=== PATIENT | female | born 1925 | race Caucasian/White ===

== ENCOUNTER 2016-04-01 15:45 | Inpatient (IN) | payer MEDICARE, BC ==
[~2016-04-01] VITALS: Ht 172.7 cm; Wt 67.3 kg
[2016-04-01] MEDS ORDERED: DILAUDID 1 MG/ML AMP ONE ×2 (18:59→21:15)
[2016-04-01] MEDS ORDERED: DUONEB INH ONE (19:40)
[2016-04-01] MEDS: DUONEB INH SCH (20:25)
[2016-04-01] MEDS ORDERED: NEB-ALBUTEROL 2.5 MG/3 ML INH PRN (20:25)
[2016-04-01] MEDS ORDERED: ACETAMINOPHEN 325 MG TAB PO PRN (20:35)
[2016-04-01] MEDS ORDERED: SALINE FLUSH 10 ML FLUSH PRN (20:35)
[2016-04-01] MEDS: NEB-BUDESONIDE 0.5 MG INH SCH (21:00)
[2016-04-01] MEDS ORDERED: PHARMACY TO DOSE XX ONE (21:00)
[2016-04-01] MEDS: NEB-BROVANA 15 MCG/2 ML INH SCH (21:00)
[2016-04-01] MEDS ORDERED: ENOXAPARIN 60 MG/0.6 ML SYR SUBQ ONE (21:05)
[2016-04-01] MEDS ORDERED: OPTIRAY 350 100 ML VIAL HMH IV ONE (21:07)
[2016-04-01 23:05] VITALS: BP_SYST 150; RESP 20; TEMP 97.9; Ht 172.7 cm; Wt 67.3 kg
[2016-04-01] MEDS: DOCUSATE SOD 100 MG CAP PO SCH (23:48)
[2016-04-01] MEDS: Atorvastatin 10 MG TAB PO SCH (23:48)
[2016-04-01] MEDS: METHYLPRED SOD SUCC 125 MG/2 ML VIAL IV SCH (23:48)
[2016-04-01] MEDS: SODIUM CHLORIDE 0.9% FLUSH BAG 500 ML IV SCH (23:49)
[2016-04-01] MEDS: LEVOFLOXACIN 750 MG/150 ML 150 ML IV SCH (23:49)
[2016-04-02] VITALS (10 sets, daily range): BP systolic 146–159; RESP 16–34; TEMP 97.4–98.9
[2016-04-02] MEDS ORDERED: METHYLPRED SOD SUCC 40 MG VIAL IV SCH
[2016-04-02] MEDS: DUONEB INH SCH ×6 (00:13→23:27)
[2016-04-02] MEDS: DILAUDID 1 MG/ML AMP IV PRN ×6 (00:54→23:31)
[2016-04-02] MEDS: MIDODRINE 2.5 MG TAB PO SCH ×3 (06:04→16:01)
[2016-04-02] MEDS: LEVOTHYROXINE 0.05 MG TAB PO SCH (06:04)
[2016-04-02] MEDS: NEB-BROVANA 15 MCG/2 ML INH SCH ×2 (07:22→19:21)
[2016-04-02] MEDS: NEB-BUDESONIDE 0.5 MG INH SCH ×2 (07:22→19:21)
[2016-04-02] MEDS: METHYLPRED SOD SUCC 125 MG/2 ML VIAL IV SCH ×3 (07:39→23:32)
[2016-04-02] MEDS: ASA/DIPYRIDAMOLE 25/200 CAP PO SCH ×2 (07:39→20:30)
[2016-04-02] MEDS: CHOLECALCIFEROL 1,000 UNITS TAB PO SCH (07:40)
[2016-04-02] MEDS: DOCUSATE SOD 100 MG CAP PO SCH ×2 (07:40→20:30)
[2016-04-02] MEDS: LEVOFLOXACIN 750 MG/150 ML 150 ML IV SCH (07:46)
[2016-04-02] MEDS: SALINE FLUSH 10 ML FLUSH SCH ×2 (07:52→20:30)
[2016-04-02] MEDS ORDERED: PHARMACY TO DOSE XX SCH (09:45)
[2016-04-02] MEDS: NYSTATIN SUSP FOR CPD 120 ML, DIPHENHYDRAMINE (FOR COMPOUND) 120 ML, HYDROCORT SOD SUC ... SWISH.SWAL SCH ×12 (12:08→20:31)
[2016-04-02] MEDS ORDERED: LORAZEPAM 0.5 MG TAB PO PRN (17:25)
[2016-04-02] MEDS ORDERED: ONDANSETRON 4 MG VIAL ONE (18:10)
[2016-04-02] MEDS ORDERED: ONDANSETRON 4 MG VIAL IV PRN (18:10)
[2016-04-02] MEDS: Atorvastatin 10 MG TAB PO SCH (20:30)
[2016-04-03] VITALS (9 sets, daily range): BP systolic 78–155; RESP 18–28; TEMP 97.5–98.2
[2016-04-03] MEDS: DILAUDID 1 MG/ML AMP IV PRN ×4 (03:34→15:55)
[2016-04-03] MEDS ORDERED: MISSING DOSE XX ONE (05:00)
[2016-04-03] MEDS: LEVOTHYROXINE 0.05 MG TAB PO SCH (06:11)
[2016-04-03] MEDS: MIDODRINE 2.5 MG TAB PO SCH ×3 (06:11→15:49)
[2016-04-03] MEDS: SODIUM CHLORIDE 0.9% FLUSH BAG 500 ML IV SCH (06:12)
[2016-04-03] MEDS: NEB-BUDESONIDE 0.5 MG INH SCH ×2 (06:54→18:24)
[2016-04-03] MEDS: DUONEB INH SCH ×5 (06:54→23:17)
[2016-04-03] MEDS: NEB-BROVANA 15 MCG/2 ML INH SCH ×2 (06:54→18:24)
[2016-04-03] MEDS: SALINE FLUSH 10 ML FLUSH SCH ×2 (08:12→20:41)
[2016-04-03] MEDS: METHYLPRED SOD SUCC 125 MG/2 ML VIAL IV SCH ×2 (08:12→15:49)
[2016-04-03] MEDS: LEVOFLOXACIN 750 MG/150 ML 150 ML IV SCH (08:12)
[2016-04-03] MEDS: CHOLECALCIFEROL 1,000 UNITS TAB PO SCH (08:13)
[2016-04-03] MEDS: DOCUSATE SOD 100 MG CAP PO SCH ×2 (08:13→20:38)
[2016-04-03] MEDS: NYSTATIN SUSP FOR CPD 120 ML, DIPHENHYDRAMINE (FOR COMPOUND) 120 ML, HYDROCORT SOD SUC ... SWISH.SWAL SCH ×12 (08:13→20:38)
[2016-04-03] MEDS: ASA/DIPYRIDAMOLE 25/200 CAP PO SCH ×2 (08:13→20:38)
[2016-04-03] MEDS ORDERED: ALENDRONATE 70 MG TAB PO SCH (15:07)
[2016-04-03] MEDS: Atorvastatin 10 MG TAB PO SCH (20:38)
[2016-04-04] VITALS (9 sets, daily range): BP systolic 120–139; RESP 16–26; TEMP 97.6–98.6
[2016-04-04] MEDS: METHYLPRED SOD SUCC 125 MG/2 ML VIAL IV SCH ×2 (00:03→08:17)
[2016-04-04] MEDS: DILAUDID 1 MG/ML AMP IV PRN ×2 (00:04→05:49)
[2016-04-04] MEDS: SODIUM CHLORIDE 0.9% FLUSH BAG 500 ML IV SCH (05:46)
[2016-04-04] MEDS: MIDODRINE 2.5 MG TAB PO SCH ×3 (05:47→16:39)
[2016-04-04] MEDS: LEVOTHYROXINE 0.05 MG TAB PO SCH (05:47)
[2016-04-04] MEDS: NEB-BROVANA 15 MCG/2 ML INH SCH ×2 (06:53→19:21)
[2016-04-04] MEDS: NEB-BUDESONIDE 0.5 MG INH SCH ×2 (06:53→19:21)
[2016-04-04] MEDS: DUONEB INH SCH ×4 (06:53→19:21)
[2016-04-04] MEDS ORDERED: ALENDRONATE 70 MG TAB PO SCH (07:00)
[2016-04-04] MEDS: LEVOFLOXACIN 750 MG/150 ML 150 ML IV SCH (08:17)
[2016-04-04] MEDS: SALINE FLUSH 10 ML FLUSH SCH ×2 (08:17→20:56)
[2016-04-04] MEDS: NYSTATIN SUSP FOR CPD 120 ML, DIPHENHYDRAMINE (FOR COMPOUND) 120 ML, HYDROCORT SOD SUC ... SWISH.SWAL SCH ×12 (08:18→20:58)
[2016-04-04] MEDS: CHOLECALCIFEROL 1,000 UNITS TAB PO SCH (08:18)
[2016-04-04] MEDS: DOCUSATE SOD 100 MG CAP PO SCH ×3 (08:18→20:56)
[2016-04-04] MEDS: ASA/DIPYRIDAMOLE 25/200 CAP PO SCH ×2 (08:18→20:56)
[2016-04-04] MEDS ORDERED: OXYCODONE/APAP 5/325 TAB PO PRN ×2 (10:20→10:30)
[2016-04-04] MEDS: OXYCODONE/APAP 5/325 TAB PO PRN ×3 (10:49→22:42)
[2016-04-04] MEDS ORDERED: DILAUDID 1 MG/ML AMP IV PRN (12:35)
[2016-04-04] MEDS: Atorvastatin 10 MG TAB PO SCH (20:56)
[2016-04-04] MEDS ORDERED: SENNA 8.6 MG TAB PO SCH (21:00)
[2016-04-05] VITALS (7 sets, daily range): BP systolic 111–142; RESP 16–18; TEMP 97.7–98.2
[2016-04-05] MEDS: DUONEB INH SCH ×4 (00:18→15:49)
[2016-04-05] MEDS: SODIUM CHLORIDE 0.9% FLUSH BAG 500 ML IV SCH (05:35)
[2016-04-05] MEDS: NEB-BROVANA 15 MCG/2 ML INH SCH (06:15)
[2016-04-05] MEDS: NEB-BUDESONIDE 0.5 MG INH SCH (06:15)
[2016-04-05] MEDS: MIDODRINE 2.5 MG TAB PO SCH ×2 (06:24→11:33)
[2016-04-05] MEDS: LEVOTHYROXINE 0.05 MG TAB PO SCH (06:25)
[2016-04-05] MEDS: OXYCODONE/APAP 5/325 TAB PO PRN ×2 (06:25→12:38)
[2016-04-05] MEDS: SALINE FLUSH 10 ML FLUSH SCH (08:18)
[2016-04-05] MEDS: DOCUSATE SOD 100 MG CAP PO SCH (08:19)
[2016-04-05] MEDS: CHOLECALCIFEROL 1,000 UNITS TAB PO SCH (08:19)
[2016-04-05] MEDS: ASA/DIPYRIDAMOLE 25/200 CAP PO SCH (08:19)
[2016-04-05] MEDS: NYSTATIN SUSP FOR CPD 120 ML, DIPHENHYDRAMINE (FOR COMPOUND) 120 ML, HYDROCORT SOD SUC ... SWISH.SWAL SCH ×6 (08:20→14:25)
[2016-04-05] MEDS ORDERED: PREDNISONE 20 MG TAB PO SCH (09:00)
[2016-04-05] MEDS ORDERED: LEVOFLOXACIN 750 MG TAB PO SCH (09:00)
== END 2016-04-05 17:03 | DRG 189 ==
LOC: ENRESERV → ENRESERVTM → ENRESERVDT → ER 15:45 → ENPENDDIS 20:24 → EMR 20:24 → 5THW 22:47
PROVIDERS: ADMIT Internal Medicine; ATTEND Internal Medicine
DX: J96.21 Acute and chronic respiratory failure with hypoxia (principal); J18.9 Pneumonia, unspecified organism; E46 Unspecified protein-calorie malnutrition; I11.0 Hypertensive heart disease with heart failure; J44.0 Chronic obstructive pulmonary disease with (acute) lower respiratory infection; I50.30 Unspecified diastolic (congestive) heart failure; M48.52XA Collapsed vertebra, not elsewhere classified, cervical region, initial encounter for fracture; M48.56XA Collapsed vertebra, not elsewhere classified, lumbar region, initial encounter for fracture; J44.1 Chronic obstructive pulmonary disease with (acute) exacerbation; Z87.891 Personal history of nicotine dependence; K21.9 Gastro-esophageal reflux disease without esophagitis; I25.10 Atherosclerotic heart disease of native coronary artery without angina pectoris; D64.9 Anemia, unspecified; E55.9 Vitamin D deficiency, unspecified; E78.5 Hyperlipidemia, unspecified; E03.9 Hypothyroidism, unspecified; F41.9 Anxiety disorder, unspecified; F32.9 Major depressive disorder, single episode, unspecified; Z68.22 Body mass index [BMI] 22.0-22.9, adult
CPT/HCPCS: 36415; 36600; 71010; 71260; 72072; 72100; 72146; 72148; 80048; 80053; 81003; 82553; 82803; 83880; 84484; 85025; 93005; 94640; 94660; 94762; 94799; 96374; 96376; 99223; 99232; 99233; 99239